=== PATIENT | female | born 1950 | race Caucasian/White ===

== ENCOUNTER → 2016-10-13 | Outpatient (CLI) | payer OTHER | LOC: FIMAGING 08:33 | DX: Z12.31 Encounter for screening mammogram for malignant neoplasm of breast (principal) | CPT/HCPCS: G0202 ==

== ENCOUNTER → 2017-11-06 | Outpatient (CLI) | payer OTHER | LOC: FIMAGING 14:21 | PROVIDERS: ATTEND Internal Medicine Geriatric Medicine | DX: Z12.31 Encounter for screening mammogram for malignant neoplasm of breast (principal) ==

== ENCOUNTER → 2018-10-07 | Outpatient (CLI) | payer OTHER | LOC: GIMAGING 09:46 | PROVIDERS: ATTEND Internal Medicine Geriatric Medicine | DX: M47.898 Other spondylosis, sacral and sacrococcygeal region (principal); M25.551 Pain in right hip; M54.5 Low back pain | CPT/HCPCS: 72220-PO; 73502-PO ==

== ENCOUNTER → 2018-11-18 | Outpatient (CLI) | payer OTHER | LOC: EMCIMAGING 11:48 ==